=== PATIENT | female | born 1995 | race Caucasian/White ===

== ENCOUNTER 2017-05-20 09:53 | Outpatient (CLI) | payer OTHER ==
--- NOTE | 2017-05-20 17:03 | MRI Report ---
MRI BRAIN WITHOUT CONTRAST INDICATION: 21-year-old female with headache. Please assess. TECHNIQUE: 1. T1 sagittal and fat saturated T2 coronal. 2. Axial T1, FLAIR, T2, T2* and DWI. COMPARISON: None. FINDINGS: Ventricular size is normal. A subtle, bandlike focus of T2/FLAIR hyperintensity is identified, in white matter of the mesial aspe ct, posterior right frontal lobe. It extends in a vertical fashion from subcortical white matter godfrey cent to the medial cortex, posterior aspect right superior frontal gyrus, caudad, into the right late ral aspect of the posterior body of the right corpus callosum (see images 18 and 19 of series 701 and image 15 series 901). This lesion measures about 5 x 8 mm in maximal dimension on axial images and i t appears to extend in the craniocaudad plane over a distance of roughly 11 mm. It demonstrates moder ate hyperintensity on b1000 sequence (see images #144, 152 and 160 of series 505). However, there is no corresponding ADC map hypointensity to suggest diffusion restriction. The findings on DWI appear t o relate to T2 shine-through. There are several small, round and ovoid T2 hyperintense foci scattered throughout the periventricular, deep and subcortical white matter in the frontal and parietal lobes. Signal intensity of cortex and white matter is otherwise unremarkable. No pathology is identified in the brainstem, cerebellar white matter or cerebellar peduncles. In addition, there is no obvious pat hology in the upper cervical spinal cord. Flow voids are demonstrated in the main intracranial arteries. No abnormal diffusion restriction is d emonstrated. No evidence of acute or chronic hemorrhage on T2*GRE sequence. No abnormal extra-axial fluid collection. No mass effect or midline shift. Limited assessment of the orbits reveals no gross pathology. The paranasal sinuses are essentially cl ear. No significant mastoid or middle ear effusion is demonstrated. Marrow signal intensity of the regional skeletal structures is unremarkable. IMPRESSION: 1. A mild amount of white matter disease is identified as described. The etiology is uncertain. Diffe rential diagnostic considerations would include vascular white matter pathologies (i.e., vasculitis, migrainous angiopathy, etc) and nonvascular white matter pathologies, including a demyelinating proce ss. Clinical correlation is advised. 2. Otherwise unremarkable, unenhanced brain MRI. In particular, no evidence of hemorrhage, space-occu pying mass lesion or other potential cause for headaches. Referring Provider Line: [phone] SITE ID: [id number]
== END 2017-05-20 09:54 | disposition home or self-care (01) ==
LOC: DI 09:53
PROVIDERS: ATTEND Pediatrics
DX: R51 Headache (principal); R90.82 White matter disease, unspecified
CPT/HCPCS: 70551